=== PATIENT | female | born 1985 | race Caucasian/White ===

== ENCOUNTER 2022-06-10 19:56 | Emergency (ER) | payer BC ==
[~2022-06-10] VITALS: Ht 175.3 cm; Wt 64.6 kg
[2022-06-10] VITALS (7 sets, daily range): BP systolic 104–126; BP diastolic 69–79
[2022-06-10] MEDS ORDERED: NEOSPORI2 EX (20:56)
[2022-06-10] MEDS ORDERED: KEFLEX500 MG PO (20:56)
== END 2022-06-10 21:42 | disposition home or self-care (01) | DRG 605 ==
LOC: ED 19:56
DX: S40.822A Blister (nonthermal) of left upper arm, initial encounter (principal); L08.9 Local infection of the skin and subcutaneous tissue, unspecified